=== PATIENT | male | born 1990 | race Caucasian/White ===

== ENCOUNTER 2018-04-01 13:03 | Inpatient (IN) ==
[2018-04-01] MEDS ORDERED: D5W 1,000 ML IV PRN (15:37)
[2018-04-01] MEDS ORDERED: MOTRIN PO PRN (15:37)
[2018-04-01] MEDS ORDERED: PHENOBARBITAL IV PRN (15:37)
[2018-04-01] MEDS ORDERED: MAALOX PLUS LIQUID PO PRN (15:37)
[2018-04-01] MEDS ORDERED: ZOFRAN ODT PO PRN (15:37)
[2018-04-01] MEDS ORDERED: TYLENOL PO PRN (15:37)
[2018-04-01] MEDS ORDERED: TUBERSOL ID ONE (15:37)
[2018-04-01] MEDS ORDERED: NICODERM PATCH TD PRN (15:37)
[2018-04-01] MEDS ORDERED: ZOFRAN IM PRN (15:37)
[2018-04-01] MEDS ORDERED: SENOKOT PO PRN (15:37)
[2018-04-01] MEDS ORDERED: ZOFRAN IV PRN (15:37)
[2018-04-01] MEDS ORDERED: NICOTINE GUM BUCCAL PRN (15:37)
[2018-04-01] MEDS ORDERED: IMODIUM PO PRN ×2 (15:37)
[2018-04-01] MEDS ORDERED: DULCOLAX PR PRN (15:37)
[2018-04-01] MEDS ORDERED: BENTYL PO PRN (15:59)
[2018-04-01] MEDS ORDERED: M.V.I.-12 10 ML, FOLIC ACID 1 MG, MAGNESIUM SULFATE 1 GM, THIAMINE 100 MG in NS 1,000 ML IV ONE (15:59)
[2018-04-01] MEDS ORDERED: SALINE LOCK IV FLUID XX ONE (15:59)
[2018-04-01] MEDS ORDERED: ROBAXIN PO PRN (15:59)
[2018-04-01] MEDS: LIBRIUM PO SCH ×2 (16:08→21:18)
[2018-04-01 16:14] LABS: HEMATOCRIT 45.1 % (42.0-52.0); HEMOGLOBIN 15.9 g/dL (14.0-18.0); MCH 32.9 PG (27-31); MCHC 35.3 g/dL (33-37); MCV 93.4 FL (81-99); MPV 10.4 FL (7.4-10.4); RBC 4.83 XMIL (4.7-6.1); WBC 5.13 X1000 (4.8-10.8)
[2018-04-01 16:31] LABS: AGAP 15; ALBUMIN 4.9 g/dL (3.5-5.0); ALKALINE PHOSPHATASE 96 U/L (32-122); AMYLASE 45 U/L (20-200); BUN 12 mg/dL (8-22); CALCIUM 10.6 mg/dL (8.8-10.2); CHLORIDE 98 mmol/L (98-107); COSMO 279; CREATININE 0.8 mg/dL (0.7-1.2); ESTIMATED GFR > 60; GLUCOSE 154 mg/dL (70-104); GOT 227 U/L (10-34); GPT 341 U/L (10-44); LIPASE 36 U/L (13-60); POTASSIUM 4.1 mmol/L (3.5-5.1); SODIUM 138 mmol/L (136-145); TCO2 25 mmol/L (25-35)
[2018-04-01 16:34] LABS: INR 1.03
[2018-04-01 16:47] LABS: URINE SOURCE CLEAN CATCH
[2018-04-01 16:58] LABS: BILIRUBIN URINE NEGATIVE (NEGATIVE); BLOOD URINE NEGATIVE (NEGATIVE); CLARITY CLEAR (CLEAR); COLOR YELLOW; GLUCOSE URINE NEGATIVE (NEGATIVE); KETONE URINE NEGATIVE (NEGATIVE); LEUKOCYTES URINE TRACE (NEGATIVE); NITRITE URINE NEGATIVE (NEGATIVE); PROTEIN URINE TRACE mg/dL (NEGATIVE); SP GRAVITY URINE 1.015; UROBILINOGEN URINE NORMAL
[2018-04-01 17:05] LABS: URINE BACTERIA NEGATIVE /HFP; URINE EPITHELIAL CELLS <10 /HPF (<10); URINE RBC <10 /HPF (<10); URINE WBC <10 /HPF (<10)
[2018-04-01] MEDS: ATARAX PO PRN ×2 (17:25→22:00)
[2018-04-01 18:39] LABS: UR AMPHETAMINES QUAL NONE DETECTED (NONE DETECT); UR BARBITUATES QUAL NONE DETECTED (NONE DETECT); UR BENZODIAZEPIN QUAL PRESUMPTIVE POSITIVE (NONE DETECT); UR CANNABINOIDS QUAL PRESUMPTIVE POSITIVE (NONE DETECT); UR COCAINE QUAL NONE DETECTED (NONE DETECT); UR METHADONE QUAL NONE DETECTED (NONE DETECT); UR METHAMPHETAMINE QUAL NONE DETECTED (NONE DETECT); UR OPIATES QUAL NONE DETECTED (NONE DETECT); UR OXYCODONE QUAL NONE DETECTED (NONE DETECT); UR PCP QUAL NONE DETECTED (NONE DETECT); UR PROPOXYPHENE QUAL NONE DETECTED (NONE DETECT); UR TCA QUAL NONE DETECTED (NONE DETECT)
[2018-04-01] MEDS: SEROQUEL PO PRN (22:29)
[2018-04-02] MEDS: LIBRIUM PO SCH ×4 (04:10→21:13)
[2018-04-02] MEDS: ATARAX PO PRN ×3 (04:13→21:13)
[2018-04-02] MEDS: PROTONIX PO SCH (06:12)
[2018-04-02] MEDS: FOLIC ACID PO SCH ×2 (09:25→16:08)
[2018-04-02] MEDS: THERA M PLUS PO SCH ×2 (09:25→16:08)
[2018-04-02] MEDS: VITAMIN B-1 PO SCH ×2 (09:25→16:08)
[2018-04-02] MEDS: SEROQUEL PO PRN (21:13)
[2018-04-02] MEDS: DESYREL PO PRN (22:28)
--- NOTE | 2018-04-03 00:18 | PROGRESS NOTE ---
DATE: 04/02/2018 SUBJECTIVE: Patient notes he is feeling a lot better. States the Librium is helping his withdrawal symptoms tremendously. He is asking if he can go home or how soon he can discharge. States he did not sleep at all last night. Denies any fevers or chills. PHYSICAL EXAM: Vital signs: Temp 98.6, pulse 60, respiratory 20, BP 129/91. General: Patient is awake, alert, currently in no respiratory distress. Very pleasant to talk with. He is in minimal alcohol withdrawal currently due to Librium taper. HEENT: Normocephalic. Neck: Supple. CARDIOVASCULAR: Regular rate. No murmurs. Chest: Clear, nonlabored. Abdomen: Soft. Extremities: Moves all extremities. Neurologic: No changes. ASSESSMENT: 1. Nausea vomiting. 2. Abdominal pain. 3. Myalgias. 4. Tremors. 5. Alcohol abuse, withdrawal, and stabilization. PLAN: We will continue patient in the hospital. Continue to stabilize with Librium. Continue to wean. Continue counseling. Further orders as needed. Hopefully, home in the next 2 to 3 days. cc: Cesar Altamirano MD
[2018-04-03] MEDS: LIBRIUM PO SCH ×6 (05:14→16:46)
[2018-04-03] MEDS: PROTONIX PO SCH (06:55)
[2018-04-03] MEDS: THERA M PLUS PO SCH (09:03)
[2018-04-03] MEDS: VITAMIN B-1 PO SCH (09:03)
[2018-04-03] MEDS: FOLIC ACID PO SCH (09:04)
[2018-04-03] MEDS: ATARAX PO PRN ×2 (13:47→20:33)
[2018-04-03] MEDS: SEROQUEL PO PRN (20:32)
[2018-04-03] MEDS: DESYREL PO PRN (21:34)
--- NOTE | 2018-04-03 22:58 | PROGRESS NOTE ---
DATE: 04/03/2018 SUBJECTIVE: The patient notes that he is feeling tremendously better. Muscle aches have improved, tremors have resolved. He is no longer nauseated. He is eating better. He notes that he is able to ambulate better. OBJECTIVE: Vital signs were reviewed. He is awake, alert. He is in no current respiratory distress. Temperature 97.8 degrees, pulse 87, respiratory rate 20, BP 122/71. HEENT: Normocephalic. Neck supple. Cardiovascular: Regular rate. No murmurs. Chest clear, nonlabored. Abdomen is soft. Extremities: Moves all extremities. Neurologic: No changes. ASSESSMENT: 1. Nausea and vomiting. 2. Abdominal pain. 3. Tremors. 4. Myalgias. 5. Paresthesias. 6. Alcohol abuse withdrawal and stabilization. 7. Chronic anxiety and depression. 8. Fatty liver. PLAN: We will continue the patient in the hospital. We will wean down Librium. If he tolerates, hopefully can discharge home tomorrow. cc: Cesar Altamirano MD
[2018-04-04] MEDS: PROTONIX PO SCH (07:11)
[2018-04-04 08:27] VITALS: BP 130/86
[2018-04-04] MEDS: VITAMIN B-1 PO SCH (08:48)
[2018-04-04] MEDS: THERA M PLUS PO SCH (08:48)
[2018-04-04] MEDS: FOLIC ACID PO SCH (08:49)
[2018-04-04] MEDS ORDERED: REVIA PO SCH (09:00)
[2018-04-04] MEDS ORDERED: LIBRIUM PO SCH (09:00)
[2018-04-04] MEDS ORDERED: ACTOS PO SCH (09:00)
--- NOTE | 2018-04-06 20:13 | HISTORY AND PHYSICAL ---
CHIEF COMPLAINT: Nausea, vomiting, alcohol withdrawal. HISTORY OF PRESENT ILLNESS: The patient is a 28-year-old male who [facility] secondary to nausea, vomiting, abdominal pain, tremors, myalgias, and alcohol withdrawal. The patient notes that he has been trying to stop, but his withdrawal symptoms have become so severe that he has started drinking again. SOCIAL HISTORY: He is . He is currently unemployed. Lives in [place], [place]. PAST MEDICAL HISTORY: Chronic anxiety since age 14 or 15, depression, history of fatty liver disease, history of blackouts that are alcohol related, hypertension, recurrent bronchitis. MEDICATIONS: Celexa, Actos. ALLERGIES: No known drug allergies. REVIEW OF SYSTEMS: CIWA score is 15 secondary to nausea, vomiting, abdominal pain, tremors which are mild, paroxysmal sweating, easily agitated. He has mild visual disturbances, headaches. Denies any dysuria, frequency, urgency, polyuria, polydipsia. Denies any skin rashes, weight loss or weight gain. Denies chest pain, palpitations. Denies any current shortness of breath. SUBSTANCE ABUSE HISTORY: The patient notes that his alcoholism is causing problems in his family life. He had been in a treatment facility in 2013, stayed 6 months. He remained sober for close to 6 months. Has been off and on in counseling, outpatient, for emotional stress and depression. Started drinking alcohol at age 19, currently drinks at least a 5th of liquor a day. Started smoking at age 17, currently smokes a pack a day. FAMILY HISTORY: Noncontributory. PHYSICAL EXAMINATION: VITAL SIGNS: Reviewed. GENERAL: The patient is awake, alert. He is in no current respiratory distress. He is pleasant to talk with although he is somewhat in early alcohol withdrawal. HEENT: Normocephalic. NECK: Supple. CARDIOVASCULAR: Regular rate. CHEST: Clear, nonlabored. ABDOMEN: Soft, nondistended. EXTREMITIES: Moves all extremities. NEUROLOGIC: No neurological changes. ASSESSMENT: 1. Acute alcoholic hallucinosis. 2. Tremors. 3. Myalgias. 4. Paresthesias. 5. Diabetes. 6. Chronic alcoholism and withdrawal. 7. Chronic anxiety and depression. PLAN: We will continue the patient in the hospital, place him on high-dose Librium taper, and begin counseling. Further orders as needed. cc: Cesar Altamirano MD
--- NOTE | 2018-04-07 01:36 | DISCHARGE SUMMARY ---
ADMISSION DATE: 04/01/2018 DISCHARGE DATE: 04/04/2018 DISCHARGE DIAGNOSIS: 1. Nausea, vomiting. 2. Abdominal pain. 3. Myalgias. 4. Tremors. 5. ?stenosis, resolved. 6. Chronic alcoholism with acute withdrawal, improved. 7. Diabetes, stable. 8. Hypertension, stable. 9. Chronic anxiety, depression. CONSULTATIONS: None. PROCEDURES: None. BRIEF HOSPITAL COURSE: Patient was admitted to the hospital, treated in the usual fashion, placed on high-dose Librium taper. Counseling was performed each day by myself. The patient thankfully had an uneventful hospital course. We were able to wean down his Librium to a tolerable level. He was discharged home. DISPOSITION: Greater than 30 minutes was spent in discharge care and instructions. Discussed with patient that he needs to consider taking naltrexone for medication assisted therapy for a minimum of 6 months. He needs outpatient life counseling as well as drug counseling. He needs to avoid all persons, places, situations in which he has been using and abusing in the past. cc: Cesar Altamirano MD MTDD
== END 2018-04-04 10:12 | disposition home or self-care (01) | DRG 897 ==
LOC: P.MEDSURG 14:19
PROVIDERS: ADMIT Family Medicine; ATTEND Family Medicine
CPT/HCPCS: 80053; 80104; 80301; 80305; 80307; 80320; 81001; 82055; 82150; 83690; 85027; 85610; 86580; A9270; G0431; G0434; G0477; G0480; G6040; J3411; J3475; J7030